=== PATIENT | male | born 1955 | race Caucasian/White ===

== ENCOUNTER 2024-06-21 09:55 | Outpatient (OUT) | payer MEDICARE, SELFPAY ==
[2024-06-21 10:26] LABS: Chol HDL Ratio 3.6; Cholesterol 143 mg/dL (<=200); HDL Cholesterol 40 mg/dL (40-60); LDL Cholesterol Calculated 85.2 mg/dL; Triglycerides 89 mg/dL (<=150); VLDL CHOLESTEROL 17.8 mg/dL
== END 2024-06-21 09:56 | disposition home or self-care (01) ==
LOC: LAB 10:00
PROVIDERS: PCP Family Medicine; Visit Provider Internal Medicine Interventional Cardiology
DX: E78.5 Hyperlipidemia, unspecified (principal)
CPT/HCPCS: 36415; 80061

== ENCOUNTER 2024-12-13 15:12 | Outpatient (OUT) | payer MEDICARE, SELFPAY ==
[2024-12-13 15:45] LABS: Estimated GFR (African America >60 (>=60 mL/min/1.73m^2); Estimated GFR (Non-African Ame >60 (>=60 mL/min/1.73m^2)
--- NOTE | 2024-12-13 16:10 | CT_ITS ---
[address] [address] Patient Name: HERBERTH VALENCIA MRN: [id number] date: 1955 Sex: M Assigned Patient Location: LAB Current Patient Location: LAB Accession/Order Number: [id number] Exam Date: 12/13/2024 16:21 Report Date: 12/13/2024 16:25 At the request of: RIP BADILLO MD Procedure: CT angio chest CTA chest CLINICAL DATA: Chest pain for 10 days with shortness of breath. TECHNIQUE: Intravenous contrast-enhanced CT angiography of the chest was performed. Axial, sagittal, coronal, and 3D-dimensional reconstructions were created and reviewed. These CT exams were performed using one or more of the following dose reduction techniques: Automated exposure control, adjustment of the mA and/or kV according to patient size, or use of iterative reconstruction technique. COMPARISON: None. FINDINGS: Chest: Mediastinum:Thoracic aorta demonstrates mild calcification without aneurysm dissection or rupture. Three-vessel arch is noted. Pulmonary trunk appears nondilated. No pleural effusion. No lymphadenopathy. The esophagus is grossly unremarkable Lungs:Small right-sided pleural effusion with associated pleural thickening and presumed round atelectasis involving the right lower lobe. Additional atelectasis/scarring is seen involving the right middle lobe. Scattered peripheral fibrotic changes with honeycombing. No suspicious consolidation or pneumothorax. Trace left-sided pleural effusion with pleural thickening and presumed round atelectasis involving the left lower lobe. Abd: No acute process.[ Soft tissues/Bones: Soft tissues surrounding the chest wall demonstrate no acute process. Osseous structures demonstrate degenerative change. CT/CT angio chest IMPRESSION: Small right and trace left pleural effusions with pleural thickening and round atelectasis involving the lower lobes. Additional scarring/fibrosis are seen without honeycombing. No suspicious consolidation to suggest pneumonia. Impression dictated by: Abraham Gallego Jr., D.O. 12/13/2024 4:25 PM Dictation Location: [place] [address] Electronically authenticated by: [id number] Y Date: 12/13/2024 16:25
== END 2024-12-13 15:13 | disposition home or self-care (01) ==
LOC: LAB 15:14
PROVIDERS: PCP Family Medicine; Visit Provider Family Medicine
DX: Z01.818 Encounter for other preprocedural examination (principal); R07.9 Chest pain, unspecified; J90 Pleural effusion, not elsewhere classified
CPT/HCPCS: 36415; 71275; 82565; Q9967

== ENCOUNTER 2024-12-22 13:25 | Outpatient (OUT) | payer MEDICARE, SELFPAY | END 2024-12-22 13:26 | disposition home or self-care (01) | LOC: RAD 13:26 | PROVIDERS: PCP Family Medicine; Visit Provider Family Medicine | DX: R07.9 Chest pain, unspecified (principal) | CPT/HCPCS: 71046 ==